=== PATIENT | female | born 1955 | race American Indian/Alaskan Native ===

== ENCOUNTER 2020-07-04 23:12 | Emergency (ER) | payer MEDICAID, OTHER ==
[~2020-07-04] VITALS: Ht 152.4 cm; Wt 90.7 kg
[2020-07-04 23:18] VITALS: BP 146/96
[2020-07-04 23:19] VITALS: BP 146/96
[2020-07-05] MEDS: ONDANSETRON 4 MG ODT PO ONE (00:32)
[2020-07-05] MEDS: KETOROLAC 60 MG/2 ML VIAL IM ONE (00:33)
== END 2020-07-05 00:40 | disposition home or self-care (01) ==
LOC: MED 23:12
DX: R51.9 Headache, unspecified (principal); I51.89 Other ill-defined heart diseases; I10 Essential (primary) hypertension; J45.909 Unspecified asthma, uncomplicated
CPT/HCPCS: 96372; 99283; J1885; Q0162